=== PATIENT | male | born 1955 | race African-American/Black ===

== ENCOUNTER → 2016-09-15 | Outpatient (CLI) | payer OTHER ==
[2016-09-18 12:41] LABS: PROSTATE SPECIFIC ANTIGEN 1.4 ng/mL (0.0-4.0); PSA % FREE 26.4 % (.); PSA FREE 0.37 ng/mL
== END ==
LOC: OD 16:32
PROVIDERS: ATTEND Urology
DX: N52.8 Other male erectile dysfunction (principal); N52.9 Male erectile dysfunction, unspecified; E29.1 Testicular hypofunction
CPT/HCPCS: 36415; 84154